=== PATIENT | female | born 1960 | race Caucasian/White ===

== ENCOUNTER 2024-08-11 13:47 | Outpatient (CLI) | payer MEDICARE, BC | END 2024-08-11 13:48 | disposition home or self-care (01) | LOC: CSHMRI 13:47 | PROVIDERS: ATTEND Family Medicine | DX: M45.9 Ankylosing spondylitis of unspecified sites in spine (principal); M53.3 Sacrococcygeal disorders, not elsewhere classified; G89.29 Other chronic pain; M67.88 Other specified disorders of synovium and tendon, other site; M70.62 Trochanteric bursitis, left hip; M70.61 Trochanteric bursitis, right hip; M62.89 Other specified disorders of muscle; M46.1 Sacroiliitis, not elsewhere classified; M16.0 Bilateral primary osteoarthritis of hip; M25.752 Osteophyte, left hip; M25.751 Osteophyte, right hip; M94.8X8 Other specified disorders of cartilage, other site | CPT/HCPCS: 72197 ==